=== PATIENT | female | born 1950 | race Caucasian/White ===

== ENCOUNTER 2021-12-13 19:24 | Inpatient (IN) | payer OTHER ==
[~2021-12-13] VITALS: Ht 152.4 cm; Wt 54.4 kg
[2021-12-13 19:49] VITALS: BP_SYST 170
[2021-12-13] MEDS ORDERED: NACL 0.9% 1,000 ML IV ONE ×2 (20:15→21:45)
[2021-12-13 20:45] LABS: BASOPHILS % (AUTO) 0.2 % (0.0-2.0); EOSINOPHILS % (AUTO) 0.4 % (0.0-4.0); LYMPHOCYTES # (AUTO) 0.3 K/uL (1.0-5.5); MEAN CORPUSCULAR HEMOGLOBIN 32 pg (27-31); MEAN CORPUSCULAR HGB CONC 33 % (32-36); MEAN CORPUSCULAR VOLUME 95 fL (79.0-98.0); MONOCYTES # (AUTO) 0.4 K/uL (0.0-1.0); NEUTROPHILS # (AUTO) 10.2 K/uL (1.8-7.7); NEUTROPHILS % (AUTO) 92.4 % (40.0-70.0); PLATELET COUNT (AUTO) 189 K/uL (130-430); RED BLOOD CELL COUNT(AUTO) 3.48 MIL/uL (4.2-6.2); RED CELL DISTRIBUTION WIDTH 18.4 % (9.0-15.0)
[2021-12-13 20:55] LABS: ANION GAP 12 (5-15); CALCIUM 8.4 mg/dL (8.4-11.0); CHLORIDE 98 mmol/L (98-107); CREATININE 0.76 mg/dL (0.55-1.30); GLUCOSE 104 mg/dL (70-99); POTASSIUM 4.2 mmol/L (3.5-5.1); SODIUM SERUM 133 mmol/L (136-145); UREA NITROGEN, BLOOD 13 mg/dL (8-21)
[2021-12-13 21:04] LABS: ALANINE AMINOTRANSFERASE 12 U/L (12-78); ALBUMIN 2.5 g/dL (3.4-4.8); ASPARTATE AMINOTRANSFERASE 47 U/L (10-37); TOTAL BILIRUBIN 1.3 mg/dL (0.0-1.0)
[2021-12-13] MEDS ORDERED: ACETAMINOPHEN 325 MG TABLET PO ONE (21:15)
[2021-12-13] MEDS ORDERED: CEFEPIME 1 GM in D5W 50 ML IV ONE (21:45)
[2021-12-13] MEDS ORDERED: VANCOMYCIN HCL 1,000 MG in NS 250 ML IV ONE (21:45)
[2021-12-13] MEDS ORDERED: VANCOMYCIN HCL 1000 MG/VIAL IV ONE (21:59)
[2021-12-13] MEDS ORDERED: CEFEPIME 1 GM/VIAL (MAXIPIME) ONE (21:59)
[2021-12-13] MEDS ORDERED: DIPHENHYDRAMINE INJ 50 MG/ML VIAL IVP ONE (22:30)
[2021-12-13] MEDS: NACL 0.9% 1,000 ML IV SCH (22:58)
[2021-12-13] MEDS ORDERED: *LOVENOX 1MG/KG Q12H/PHARMACY XX ONE (23:00)
[2021-12-14] MEDS ORDERED: PIPERACILLIN/TAZO 3.375/DEX-IS 50 ML IV SCH
[2021-12-14] MEDS ORDERED: PIPERACILLIN/TAZOBACTAM 3.375 GM/VIAL (ZOSYN) IV ONE ×2 (00:14→06:34)
[2021-12-14] MEDS: ENOXAPARIN SODIUM 60 MG/0.6 ML SYRINGE SUBCUT SCH ×2 (00:21→11:45)
[2021-12-14 00:40] LABS: BILIRUBIN,URINE NEGATIVE (NEGATIVE); BLOOD, URINE 3+ (NEGATIVE); CLARITY/URINE CLEAR (CLEAR); COLOR,URINE YELLOW (YELLOW); GLUCOSE,URINE NEGATIVE (NEGATIVE); KETONES,URINE NEGATIVE (NEGATIVE); LEUKOCYTE ESTERASE ,URINE 1+ (NEGATIVE); NITRITE, URINE NEGATIVE (NEGATIVE); PROTEIN URINE TRACE (NEGATIVE)
[2021-12-14 01:04] LABS: BACTERIA,URINE MANY /HPF (None Seen); YEAST,URINE Few /HPF (None Seen)
[2021-12-14] MEDS: PIPERACILLIN/TAZO 3.375 GM in NS 50 ML IV SCH ×5 (01:18→23:47)
[2021-12-14 02:30] VITALS: BP_SYST 135
[2021-12-14 08:00] VITALS: BP_SYST 145
[2021-12-14] MEDS: NACL 0.9% 1,000 ML IV SCH (09:09)
[2021-12-14 09:45] LABS: ANION GAP 7 (5-15); BASOPHILS % (AUTO) 0.2 % (0.0-2.0); CALCIUM 8.1 mg/dL (8.4-11.0); CHLORIDE 103 mmol/L (98-107); CREATININE 0.65 mg/dL (0.55-1.30); EOSINOPHILS % (AUTO) 0.1 % (0.0-4.0); GLUCOSE 130 mg/dL (70-99); HEMATOCRIT 33.6 % (36-48); LYMPHOCYTES # (AUTO) 0.4 K/uL (1.0-5.5); LYMPHOCYTES % (AUTO) 3.3 % (20.5-51.5); MEAN CORPUSCULAR HEMOGLOBIN 31 pg (27-31); MEAN CORPUSCULAR HGB CONC 33 % (32-36); MEAN CORPUSCULAR VOLUME 96 fL (79.0-98.0); MONOCYTES # (AUTO) 0.6 K/uL (0.0-1.0); MONOCYTES % (AUTO) 4.4 % (1.7-9.3); NEUTROPHILS # (AUTO) 11.8 K/uL (1.8-7.7); PLATELET COUNT (AUTO) 167 K/uL (130-430); POTASSIUM 4.1 mmol/L (3.5-5.1); RED BLOOD CELL COUNT(AUTO) 3.52 MIL/uL (4.2-6.2); RED CELL DISTRIBUTION WIDTH 18.2 % (9.0-15.0); SODIUM SERUM 136 mmol/L (136-145); UREA NITROGEN, BLOOD 11 mg/dL (8-21); WHITE BLOOD COUNT (AUTO) 12.9 K/uL (4.8-10.8)
[2021-12-14] MEDS ORDERED: LOPERAMIDE HCL 2 MG CAPSULE PO PRN (10:00)
[2021-12-14] MEDS ORDERED: FLUCONAZOLE 100 mg/ NS 50 ML IV ONE (12:00)
[2021-12-14] MEDS ORDERED: IPRATROPIUM/ALBUTEROL SULFATE 3 ML AMPUL.NEB (DUONEB) ONE (12:43)
[2021-12-14 12:45] VITALS: BP_SYST 140
[2021-12-14] MEDS ORDERED: IPRATROPIUM/ALBUTEROL SULFATE 3 ML AMPUL.NEB (DUONEB) INH PRN (13:00)
[2021-12-14] MEDS ORDERED: FUROSEMIDE 20 MG/2 ML VIAL IVP ONE (13:00)
[2021-12-14 16:15] VITALS: BP_SYST 142
[2021-12-14 17:58] VITALS: BP_SYST 142
[2021-12-14 20:29] VITALS: BP_SYST 162
[2021-12-14] MEDS ORDERED: VANCOMYCIN HCL 750 MG in NS 250 ML IV SCH (21:00)
[2021-12-15] VITALS: BP_SYST 141
[2021-12-15] MEDS: PIPERACILLIN/TAZO 3.375 GM in NS 50 ML IV SCH ×4 (05:55→23:56)
[2021-12-15] MEDS: FLUCONAZOLE 100 mg/ NS 50 ML IV SCH (10:00)
[2021-12-15 12:36] VITALS: BP_SYST 145
[2021-12-15 16:00] VITALS: BP_SYST 142
[2021-12-15 20:00] VITALS: BP_SYST 130
[2021-12-15] MEDS: HEPARIN SODIUM,PORCINE 5,000 UNITS/ML VIAL SUBCUT SCH (22:19)
[2021-12-16 00:58] VITALS: BP_SYST 136
[2021-12-16] MEDS: PIPERACILLIN/TAZO 3.375 GM in NS 50 ML IV SCH ×4 (05:42→23:25)
[2021-12-16] MEDS: HEPARIN SODIUM,PORCINE 5,000 UNITS/ML VIAL SUBCUT SCH ×3 (05:48→23:23)
[2021-12-16] MEDS: FLUCONAZOLE 100 mg/ NS 50 ML IV SCH (09:19)
[2021-12-16 10:58] VITALS: BP_SYST 139
[2021-12-16 12:00] VITALS: BP_SYST 139
[2021-12-16 16:34] VITALS: BP_SYST 138
[2021-12-16 20:00] VITALS: BP_SYST 139
[2021-12-17] VITALS: BP_SYST 148
[2021-12-17] MEDS: HEPARIN SODIUM,PORCINE 5,000 UNITS/ML VIAL SUBCUT SCH (06:36)
[2021-12-17] MEDS: PIPERACILLIN/TAZO 3.375 GM in NS 50 ML IV SCH (06:37)
[2021-12-17] MEDS: FLUCONAZOLE 100 mg/ NS 50 ML IV SCH (09:37)
[2021-12-17 10:35] LABS: BASOPHILS % (AUTO) 0.7 % (0.0-2.0); EOSINOPHILS # (AUTO) 0.1 K/uL (0.0-0.4); EOSINOPHILS % (AUTO) 1.7 % (0.0-4.0); HEMATOCRIT 34.2 % (36-48); HEMOGLOBIN 11.4 g/dL (12.0-16.0); LYMPHOCYTES # (AUTO) 0.5 K/uL (1.0-5.5); LYMPHOCYTES % (AUTO) 8.6 % (20.5-51.5); MEAN CORPUSCULAR HEMOGLOBIN 32 pg (27-31); MEAN CORPUSCULAR HGB CONC 33 % (32-36); MEAN CORPUSCULAR VOLUME 95 fL (79.0-98.0); MONOCYTES # (AUTO) 0.5 K/uL (0.0-1.0); MONOCYTES % (AUTO) 8.8 % (1.7-9.3); NEUTROPHILS # (AUTO) 4.4 K/uL (1.8-7.7); NEUTROPHILS % (AUTO) 80.2 % (40.0-70.0); PLATELET COUNT (AUTO) 223 K/uL (130-430); RED CELL DISTRIBUTION WIDTH 18.1 % (9.0-15.0); WHITE BLOOD COUNT (AUTO) 5.5 K/uL (4.8-10.8)
[2021-12-17] MEDS ORDERED: AMOX-520 PO (11:22)
[2021-12-17] MEDS ORDERED: FLUC200T PO (11:22)
[2021-12-17 12:00] VITALS: BP_SYST 145
[2021-12-17] MEDS ORDERED: AMPICILLIN SODIUM 1 GM in NS 50 ML IV SCH (12:00)
[2021-12-17 13:08] VITALS: BP_SYST 138
[2021-12-17 16:30] VITALS: BP_SYST 144
== END 2021-12-17 15:15 | disposition home health service (06) | DRG 871 ==
LOC: SED 19:24 → STU 22:00
PROVIDERS: ADMIT Family Medicine; ATTEND Family Medicine
PROC: 0W9G3ZZ Drainage of Peritoneal Cavity, Percutaneous Approach (ICD-10-PCS; principal; 2021-12-15)
DX: A41.9 Sepsis, unspecified organism (principal); J18.9 Pneumonia, unspecified organism; N39.0 Urinary tract infection, site not specified; C79.51 Secondary malignant neoplasm of bone; E44.1 Mild protein-calorie malnutrition; R18.8 Other ascites; J91.8 Pleural effusion in other conditions classified elsewhere; C50.919 Malignant neoplasm of unspecified site of unspecified female breast; D64.9 Anemia, unspecified; Z20.822 Contact with and (suspected) exposure to COVID-19; B95.5 Unspecified streptococcus as the cause of diseases classified elsewhere; Z85.3 Personal history of malignant neoplasm of breast; Z92.3 Personal history of irradiation
CPT/HCPCS: 36415; 49083; 71045; 76376; 76705; 78579; 78580-TC; 80048; 80053; 81000; 83605; 83880; 84484; 85025; 85379; 87040; 87086; 87186-TC; 93005; 96374; 96375; 99291; A9539; A9540; G0378; J0290; J0692; J1200; J1450; J1644; J1650; J1940; J2543; J3370; J7050